=== PATIENT | male | born 1980 | race African-American/Black ===

== ENCOUNTER 2019-08-21 17:29 | Emergency (ER) | payer MEDICAID, OTHER ==
[~2019-08-21] VITALS: Ht 185.4 cm; Wt 82.0 kg
[2019-08-21 17:57] VITALS: BP 134/78
[2019-08-21] MEDS ORDERED: AZITHROMYCIN 500 MG TABLET PO ONE (18:00)
[2019-08-21] MEDS ORDERED: CEFTRIAXONE 250 MG IM ONE (18:00)
--- NOTE | 2019-08-21 18:36 | NUR ---
PT HERE WITH C/O POSSIBLE STD EXPOSURE. STATES UNPROTECTED SEX X 2 WEEKS AND NOW IS EXPERIENCING PAIN/BURNING WITH URINATION.
[2019-08-21] MEDS ORDERED: AZITHROMYCIN 500 MG TABLET ONE (18:42)
[2019-08-21] MEDS ORDERED: CEFTRIAXONE 250 MG ONE (18:42)
--- NOTE | 2019-08-21 18:46 | NUR ---
PT MEDICATED PER ORDERS, UA SENT.
--- NOTE | 2019-08-21 19:21 | NUR ---
Patient/Caregiver given discharge instructions and they have confirmed that they understand the instructions. Patient ambulatory with steady gait.
== END 2019-08-21 19:23 | disposition home or self-care (01) ==
LOC: ED 18:50
DX: N34.2 Other urethritis (principal); Z20.2 Contact with and (suspected) exposure to infections with a predominantly sexual mode of transmission
CPT/HCPCS: 87491; 87591; 96372; 99283; J0696

== ENCOUNTER 2020-01-02 08:14 | Emergency (ER) | payer MEDICAID ==
[~2020-01-02] VITALS: Ht 185.4 cm; Wt 81.0 kg
[2020-01-02] MEDS ORDERED: KETOROLAC 30 MG/1 ML ONE (09:15)
[2020-01-02] MEDS ORDERED: KETOROLAC 30 MG/1 ML IM ONE (09:30)
[2020-01-02 10:18] VITALS: BP 124/79
== END 2020-01-02 10:33 | disposition home or self-care (01) ==
LOC: ED 09:39
DX: M79.671 Pain in right foot (principal)
CPT/HCPCS: 73630; 96372; 99283; J1885

== ENCOUNTER 2021-01-26 10:09 | Emergency (ER) | payer MEDICAID ==
[~2021-01-26] VITALS: Ht 185.4 cm; Wt 76.7 kg
[2021-01-26 10:18] VITALS: BP 128/83
--- NOTE | 2021-01-26 10:36 | NUR ---
TO ROOM FROM LOBBY AT THIS TIME.
[2021-01-26] MEDS ORDERED: DEXAMETHASONE 4 MG TABLET PO ONE (11:00)
--- NOTE | 2021-01-26 11:00 | NUR ---
RECEIVED REPORT FROM GERARDO SALGADO. ASSUMING CARE AT THIS TIME.
--- NOTE | 2021-01-26 11:00 | NUR ---
REPORT GIVEN TO ELMER SALGADO.
[2021-01-26] MEDS ORDERED: DEXAMETHASONE 4 MG TABLET ONE (11:02)
--- NOTE | 2021-01-26 11:06 | NUR ---
[employer] INST[employer]ER PER MAR.
== END 2021-01-26 11:49 | disposition home or self-care (01) ==
LOC: ED 11:40
DX: U07.1 COVID-19 (principal); J02.9 Acute pharyngitis, unspecified
CPT/HCPCS: 93005; 99283